=== PATIENT | male | born 1970 | race Caucasian/White ===

== ENCOUNTER 2017-04-26 06:53 | Day surgery (SDC) | payer OTHER ==
[~2017-04-26] VITALS: Ht 182.9 cm; Wt 153.0 kg
[~2017-04-26 06:53] MED LIST: ATOR40TA PO; Aspirin EC81 MG PO; METO50ER PO; NITR.4SL SL; NITRO
--- NOTE | 2017-04-26 09:24 | NUR ---
PT RESTING COMFORTABLY. DENIES NEEDS. VSS. NADN. TR BAND IN PLACE. NO BLEEDING OR HEMATOMA NOTED. PT VERBALIZES UNDERSTANDING WRITTEN AND VERBAL ORDERS. CALL LIGHT WITHIN REACH.
--- NOTE | 2017-04-26 11:00 | NUR ---
started to release air from R Radial TR band. Pt tolerating well. No bleeding or hematoma noted. vss. NADN> Call light within reach. S/o at bedside.
--- NOTE | 2017-04-26 11:36 | NUR ---
PT AIR FULLY DEFLATED. PT RESTING COMFORTABLY. TR BAND CLEAR. NADN. FULL REPORT TO PATRICIA PEÑA RN TO ASSUME CARE.
== END 2017-04-26 12:36 | disposition home or self-care (01) ==
LOC: MHTC 06:53
PROC: B2111ZZ Fluoroscopy of Multiple Coronary Arteries using Low Osmolar Contrast (ICD-10-PCS; principal; 2017-04-26)
PROC: 4A023N7 Measurement of Cardiac Sampling and Pressure, Left Heart, Percutaneous Approach (ICD-10-PCS; principal; 2017-04-26)
DX: R07.9 Chest pain, unspecified (principal); I25.10 Atherosclerotic heart disease of native coronary artery without angina pectoris; R93.9 Diagnostic imaging inconclusive due to excess body fat of patient; R06.02 Shortness of breath; R94.39 Abnormal result of other cardiovascular function study; E78.5 Hyperlipidemia, unspecified; I10 Essential (primary) hypertension; E66.01 Morbid (severe) obesity due to excess calories; Z79.899 Other long term (current) drug therapy; Z79.82 Long term (current) use of aspirin
CPT/HCPCS: 93458; 99152; 99153; C1769; C1894; J1644; J2250; J3010; J7030; Q9967